=== PATIENT | female | born 1990 | race Caucasian/White ===

== ENCOUNTER 2017-04-18 20:23 | Emergency (ER) | payer MEDICAID ==
[2017-04-18] MEDS ORDERED: KETOROLAC TROMETHAMINE 60 MG/2 ML SDV IM ONE (20:59)
--- NOTE | 2017-04-18 21:00 | ER Document Report ---
ED Oral Problem - General Chief Complaint: Toothache Stated Complaint: TOOTHACHE Time Seen by Provider: 04/18/17 20:48 Mode of Arrival: Ambulatory Information source: Patient TRAVEL OUTSIDE OF THE [place] IN LAST 30 DAYS: No - HPI Patient complains to provider of: Toothache Onset: Gradual Quality of pain: Achy Severity: Moderate Pain Level: 3 Context: Fractured tooth Associated symptoms: None Worsened by: Cold Relieved by: Nothing Similar symptoms previously: Yes Recently seen / treated by doctor/dentist: No Notes: Patient is a 27-year-old female presenting to the emergency room complaining of dental pain that has been going on for "a while", however worsening over the past few days, she has an appointment with a dentist on Thursday but stated the pain became unbearable today, it is worsened by cold air or fluids, she has been taking Motrin 800 mg at home which provides her with moderate intermittent relief, she denies any fevers, no recent injury although reports a fracture to the tooth that has been there for several months, no drainage, no foul taste in her mouth - Related Data Allergies/Adverse Reactions: iodine [Iodine] Allergy (Severe, Verified 04/18/17 20:35) Anaphylaxis Shellfish * [Shellfish] Allergy (Severe, Verified 04/18/17 20:35) Anaphylaxis Past Medical History - General Information source: Patient - Social History Smoking Status: Current Every Day Smoker Family History: Reviewed & Not Pertinent Renal/ Medical History: Denies: Hx Peritoneal Dialysis Past Surgical History: Reports: Hx Dilation and Curettage, Hx Gynecologic Surgery - D&C - Immunizations Immunizations up to date: Yes Hx Diphtheria, Pertussis, Tetanus Vaccination: Yes Review of Systems - Review of Systems Constitutional: No symptoms reported EENT: See HPI Cardiovascular: No symptoms reported Respiratory: No symptoms reported Gastrointestinal: No symptoms reported Genitourinary: No symptoms reported Female Genitourinary: No symptoms reported Musculoskeletal: No symptoms reported Skin: No symptoms reported Hematologic/Lymphatic: No symptoms reported Neurological/Psychological: No symptoms reported -: Yes All other systems reviewed and negative Physical Exam - Notes Notes: - General General appearance: Appears well, Alert In distress: None - HEENT Head: Normocephalic, Atraumatic Eyes: Normal Conjunctiva: Normal Extraocular movements intact: Yes Eyelashes: Normal Pupils: PERRL - Respiratory Respiratory status: No respiratory distress - Cardiovascular Rhythm: Regular - Abdominal Inspection: Normal - Back Back: Normal - Extremities General upper extremity: Normal inspection General lower extremity: Normal inspection - Neurological Neuro grossly intact: Yes Orientation: AAOx4 [place] Coma Scale Eye Opening: Spontaneous [place] Coma Scale Verbal: Oriented [place] Coma Scale Motor: Obeys Commands [place] Coma Scale Total: 15 - Psychological Associated symptoms: Normal affect, Normal mood - Skin Skin Temperature: Warm Skin Moisture: Dry Skin Color: Normal - HEENT Teeth diagram: 1 - Dental carry Course - Re-evaluation Re-evalutation: 04/18/17 21:25 Patient with toothache to tooth #13, no signs of active infection, she is currently on Suboxone and agrees that she should not receive any narcotic pain medication at this time, she has a dentist appointment on Thursday of this coming week, she was advised to keep that appointment, provided with a Toradol injection in the emergency room as well as a prescription for 600 mg Motrin to take 3 times a day, advised to follow-up with the dentist as scheduled or return if any additional concerns, patient acknowledges understanding and agreement with this plan Discharge - Discharge Clinical Impression: Toothache Condition: Stable Disposition: HOME, SELF-CARE Instructions: Toothache ([facility]) Additional Instructions: Follow up with your primary care provider and a dentist in one to 2 days. Return to the emergency room immediately if symptoms worsen or any additional concerns. Prescriptions: Ibuprofen [Motrin 600 Mg Tablet] 600 mg PO TID #30 tablet
[2017-04-18 21:47] VITALS: BP 135/75
== END 2017-04-18 21:31 | disposition home or self-care (01) ==
LOC: ER 20:23
DX: K08.89 Other specified disorders of teeth and supporting structures (principal); F17.200 Nicotine dependence, unspecified, uncomplicated
CPT/HCPCS: 99283; 96372; J1885

== ENCOUNTER 2018-02-17 22:58 | Outpatient (CLI) | payer MEDICAID ==
[2018-02-17 23:56] LABS: APPEARANCE,URINE CLEAR; BILIRUBIN,URINE NEGATIVE (NEGATIVE); COLOR,URINE YELLOW; GLUCOSE, URINE NEGATIVE (NEGATIVE); KETONES,URINE NEGATIVE (NEGATIVE); LEUKOCYTE ESTERASE,URINE NEGATIVE (NEGATIVE); NITRITE,URINE NEGATIVE (NEGATIVE); PROTEIN,URINE NEGATIVE (NEGATIVE); URINE SPECIFIC GRAVITY 1.019
[2018-02-18 00:13] LABS: URINE AMPHETAMINES SCREEN NEGATIVE; URINE BARBITURATES SCREEN NEGATIVE; URINE BENZODIAZEPINES SCREEN NEGATIVE; URINE COCAINE SCREEN NEGATIVE; URINE MARIJUANA (THC) SCREEN NEGATIVE; URINE METHADONE SCREEN NEGATIVE; URINE PHENCYCLIDINE SCREEN NEGATIVE
[2018-02-18 00:21] LABS: ABSOLUTE EOSINOPHILS # (AUTO) 0.3 10^3/uL (0.0-0.6); ABSOLUTE LYMPHOCYTES (AUTO) 2.6 10^3/uL (0.5-4.7); ABSOLUTE MONOCYTES (AUTO) 1.2 10^3/uL (0.1-1.4); ABSOLUTE NEUT (AUTO) 10.3 10^3/uL (1.7-8.2); BASOPHILS % (AUTO) 0.3 % (0-2); EOSINOPHILS % (AUTO) 1.7 % (0-6); HEMATOCRIT 30.2 % (36.0-47.0); HEMOGLOBIN 10.5 g/dL (12.0-15.5); LYMPHOCYTES % (AUTO) 18.4 % (13-45); MEAN CORPUSCULAR HEMOGLOBIN 30.4 pg (27.0-33.4); MEAN CORPUSCULAR HGB CONC 34.9 g/dL (32.0-36.0); MEAN CORPUSCULAR VOLUME 87 fl (80-97); MONOCYTES % (AUTO) 8.5 % (3-13); PLATELET COUNT 244 10^3/uL (150-450); RED BLOOD COUNT 3.47 10^6/uL (3.72-5.28); RED CELL DISTRIBUTION WIDTH 13.3 % (11.5-14.0); SEGMENTED NEUTROPHILS % (AUTO) 71.1 % (42-78); TOTAL CELLS COUNTED % (AUTO) 100 %; WHITE BLOOD COUNT 14.4 10^3/uL (4.0-10.5)
--- NOTE | 2018-02-18 01:59 | RADIOLOGY REPORT (SQ) ---
EXAM DESCRIPTION: US LIMITED CLINICAL HISTORY: 28 years Female, placenta location Comparison: None. TECHNIQUE/LIMITATION: Targeted OB sonogram for requested parameters only. FINDINGS: Twin A Cardiac activity: 150-bpm. Twin B Cardiac activity: 143-bpm. Placenta, twin A: Anterior. No evidence of abruption. Placenta, twin B: Anterior. No evidence of abruption. Presentation twin A: Vertex presentation twin B: Vertex IMPRESSION: Targeted OB sonogram for requested parameters
== END 2018-02-18 02:07 | disposition home or self-care (01) ==
LOC: LC 22:58
PROVIDERS: ATTEND Obstetrics & Gynecology
DX: O99.89 Other specified diseases and conditions complicating pregnancy, childbirth and the puerperium (principal); R10.9 Unspecified abdominal pain
CPT/HCPCS: 36415; 76815; 80307; 81001; 85025

== ENCOUNTER 2018-04-21 16:59 | Inpatient (IN) | payer MEDICAID ==
[~2018-04-21 16:59] MED LIST: DEXAMETHASONE SOD PHOSPHATE INJ 4 MG/1 ML VIAL ONE; KETOROLAC TROMETHAMINE 60 MG/2 ML SDV ONE; METOCLOPRAMIDE HCL INJ/PF 10 MG/2 ML SDV ONE; ONDANSETRON HCL INJ/PF 4 MG/2 ML SDV ONE; PHENYLEPHRINE HCL INJ/PF 10 MG/1 ML SDV ONE
[2018-04-21 17:43] LABS: AMNISURE (ROM) NEGATIVE (NEGATIVE)
[2018-04-21 17:47] LABS: APPEARANCE,URINE CLEAR; BILIRUBIN,URINE NEGATIVE (NEGATIVE); COLOR,URINE STRAW; GLUCOSE, URINE NEGATIVE (NEGATIVE); KETONES,URINE NEGATIVE (NEGATIVE); LEUKOCYTE ESTERASE,URINE SMALL (NEGATIVE); NITRITE,URINE NEGATIVE (NEGATIVE); PROTEIN,URINE NEGATIVE (NEGATIVE); URINE SPECIFIC GRAVITY 1.002; UROBILINOGEN,URINE NEGATIVE mg/dL (<2.0)
[2018-04-21 18:13] LABS: URINE AMPHETAMINES SCREEN NEGATIVE; URINE BARBITURATES SCREEN NEGATIVE; URINE BENZODIAZEPINES SCREEN NEGATIVE; URINE COCAINE SCREEN NEGATIVE; URINE MARIJUANA (THC) SCREEN NEGATIVE; URINE METHADONE SCREEN NEGATIVE; URINE PHENCYCLIDINE SCREEN NEGATIVE
[2018-04-21 18:33] LABS: T.VAGINALIS (WET MOUNT) NO TRICHOMONAS SEEN; WBCS (WET MOUNT) RARE WBCS SEEN; YEAST (WET MOUNT) NO YEAST SEEN
[2018-04-21 19:25] LABS: ABSOLUTE BASOPHILS # (AUTO) 0.1 10^3/uL (0.0-0.2); ABSOLUTE EOSINOPHILS # (AUTO) 0.1 10^3/uL (0.0-0.6); ABSOLUTE LYMPHOCYTES (AUTO) 1.9 10^3/uL (0.5-4.7); ABSOLUTE MONOCYTES (AUTO) 0.6 10^3/uL (0.1-1.4); ABSOLUTE NEUT (AUTO) 7.4 10^3/uL (1.7-8.2); EOSINOPHILS % (AUTO) 0.7 % (0-6); HEMATOCRIT 37.2 % (36.0-47.0); HEMOGLOBIN 12.4 g/dL (12.0-15.5); LYMPHOCYTES % (AUTO) 18.5 % (13-45); MEAN CORPUSCULAR HEMOGLOBIN 28.3 pg (27.0-33.4); MEAN CORPUSCULAR HGB CONC 33.2 g/dL (32.0-36.0); MEAN CORPUSCULAR VOLUME 85 fl (80-97); MONOCYTES % (AUTO) 6.4 % (3-13); PLATELET COUNT 191 10^3/uL (150-450); RED BLOOD COUNT 4.37 10^6/uL (3.72-5.28); RED CELL DISTRIBUTION WIDTH 15.9 % (11.5-14.0); SEGMENTED NEUTROPHILS % (AUTO) 73.4 % (42-78); TOTAL CELLS COUNTED % (AUTO) 100 %; WHITE BLOOD COUNT 10.1 10^3/uL (4.0-10.5)
[2018-04-21] MEDS ORDERED: PENICILLIN G-K 5 MILLION UNIT VIAL ONE (20:04)
--- NOTE | 2018-04-21 20:09 | Admission Physical ---
Datetime Report Generated by CPN: 04/21/2018 20:09 CURRENT ADMISSION Chief Complaint: Suspected Ruptured Membranes Indication for Induction- Other: Srom Admit Impression : , Intrauterine Admit Impression- Other: Twins Admit Plan: Admit to Unit; Initiate Labor Protocol ALLERGIES Medication Allergies: Yes Medication Allergies: Shellfish */SV/Anaphylaxis (04/21/2018); iodine/SV/Anaphylaxis (04/21/2018) Latex: No Latex Allergies Food Allergies: N/A Environmental Allergies: N/A OBSTETRICAL HISTORY EDC: 05/25/2018 00:00 : 4 Para: 2 Term: 2 : 0 SAB: 1 IAB: 0 Ectopic: 0 Livin Cesareans: 0 VBACs: 0 Multiple Births: 0 Gestational Diabetes: No Rh Sensitization: No Incompetent Cervix: No REGINO: No Infertility: No ART Treatment: No Uterine Anomaly: No IUGR: No Hx Previous C/S: No Macrosomia: No Hx Loss/Stillborn: No PIH: No Hx : No Placenta Previa/Abruption: No Depression/PP Depression: No PTL/PROM: No Post Hemorrhage: No Obstetrical History Comments: G1- SAB with D_C G2- 2011, 40 weeks, 6lbs 9oz, female, , epidural G3- 2013, 38 weeks, 6lbs 9oz, female, , epidural, IOL SGA G4-mono-di twins SEE RECORDS Alcohol: No Marijuana : No Cocaine: No Other Illicit Drugs: No Cigarettes: Smoker, Current Status Unknown. [id number] MEDICAL HISTORY Diabetes: No Blood Transfusion: No Pulmonary Disease (Asthma, TB): No Breast Disease: No Hypertension: No Classified Ad Taker Surgery: Yes Heart Disease: No Hosp/Surgery: No Autoimmune Disorder: No Anesthetic Complications: No Kidney Disease: No Abnormal Pap Smear: Yes Neuro/Epilepsy: No Psychiatric Disorders: No Other Medical Diseases: No Hepatitis/Liver Disease: Yes Significant Family History: No Varicosities/Phlebitis: No Trauma/Violence : No Thyroid Dysfunction: No Medical History Comments: Hep C, D_C 2009, HPV, chronic drug abuse INFECTIOUS HISTORY Gonorrhea: No Genital Herpes: No Chlamydia: Yes Tuberculosis: No Syphilis: No Hepatitis: Yes HIV/AIDS Exposure: No Rash or Viral Illness: No HPV: No Infectious History Comments: Hep C PHYSICAL EXAM General: Normal HEENT: Normal Neurologic: Normal Thyroid: Normal Heart: Normal Lungs: Normal Breast: Deferred Back: Normal Abdomen: Normal Genitourinary Exam: Normal Extremities: Normal DTRs: Normal Pelvic Type: Adequate Vital Signs: Reviewed VAGINAL EXAM Dilatation: 1 Effacement: 0 Station: 0 MEMBRANES Membranes: Ruptured FETUS A EGA: 35.1 Monitoring: External US FHR- Baseline: 140 Variability: Moderate 6-25bpm Decelerations: None FHR Category: Category I Presentation: Vertex Presentation- Other: breech Admit Comment: Will admit. She will likely need pitocin. Will begin GBS prophylaxis. FETUS B Monitoring: External US PLANS FOR LABOR AND DELIVERY Benefit of Breast Feed Discussed: Yes Circumcision: N/A INFORMED CONSENT Signature: with User ID: [email or web address]
[2018-04-21] MEDS ORDERED: PENICILLIN G POTASSIUM 5,000,000 UNIT in DEXTROSE 5%-WATER 100 ML IV ONE (20:12)
[2018-04-21] MEDS ORDERED: OXYTOCIN/NORMAL SALINE 20 UNIT/1,000 ML RTUINJ IV PRN ×2 (20:14→21:36)
[2018-04-21] MEDS ORDERED: OXYTOCIN/NORMAL SALINE 20 UNIT/1,000 ML RTUINJ ONE (21:07)
[2018-04-21] MEDS ORDERED: HYDROMORPHONE HCL INJ/PF 2 MG/ML AMPULE IV PRN (21:36)
[2018-04-21] MEDS ORDERED: CITRIC ACID/SODIUM CITRATE ORAL SOLN 15 ML UDCUP ONE (21:36)
[2018-04-21] MEDS ORDERED: PROMETHAZINE HCL INJ 25 MG/1 ML VIAL IV PRN ×3 (21:36→22:42)
[2018-04-21] MEDS ORDERED: MEASLES,MUMPS&RUBELLA VACC/PF 0.5 ML VIAL SUBCUT PRN (21:36)
[2018-04-21] MEDS ORDERED: ACETAMINOPHEN 325 MG TABLET PO PRN (21:36)
[2018-04-21] MEDS ORDERED: DIPH/PERTUSS(ACELL)/TETANUS VAC/PF 0.5 ML SYR (>=10YO) IM PRN (21:36)
[2018-04-21] MEDS ORDERED: RINGERS SOLUTION,LACTATED 1,000 ML IV PRN (21:36)
[2018-04-21] MEDS ORDERED: SIMETHICONE 80 MG TAB.CHEW PO PRN (21:36)
[2018-04-21] MEDS ORDERED: OXYCODONE-ACETAMINOPHEN 5-325 MG TABLET PO PRN (21:36)
[2018-04-21] MEDS ORDERED: ACETAMINOPHEN 1,000 MG/100 ML RTUPB IV PRN (21:36)
[2018-04-21] MEDS ORDERED: CEFAZOLIN 2 GM/D5W RTU 2 GM/50 ML RTUPB IV ONE (21:43)
[2018-04-21] MEDS ORDERED: EPHEDRINE SULFATE INJ 50 MG/1 ML AMPULE ONE (21:58)
[2018-04-21] MEDS ORDERED: FENTANYL CITRATE INJ/PF 100 MCG/2 ML AMPUL ONE (21:58)
[2018-04-21] MEDS ORDERED: OXYTOCIN 10 UNIT/ML VIAL ONE (21:58)
[2018-04-21] MEDS ORDERED: MIDAZOLAM 2 MG/2 ML INJ ONE (21:59)
[2018-04-21] MEDS ORDERED: BUPIVACAINE HCL/DEX-WATER/PF 15 MG/2 ML AMPULE ONE (22:04)
[2018-04-21] MEDS ORDERED: DIPHENHYDRAMINE HCL 50 MG/ML VIAL IV PRN (22:42)
[2018-04-21] MEDS ORDERED: ONDANSETRON HCL INJ/PF 4 MG/2 ML SDV IV PRN (22:42)
[2018-04-21] MEDS ORDERED: MORPHINE SULFATE 10 MG/ML INJ IV PRN (22:42)
[2018-04-21] MEDS ORDERED: FENTANYL CITRATE INJ/PF 100 MCG/2 ML AMPUL IV PRN ×3 (22:42)
[2018-04-21] MEDS ORDERED: MEPERIDINE HCL/PF INJ 25 MG/1 ML DISP.SYRIN IV PRN (22:42)
[2018-04-21] MEDS ORDERED: ACETAMINOPHEN 1,000 MG/100 ML RTUPB IV ONE (23:14)
--- NOTE | 2018-04-21 23:19 | Operative Report ---
Operative Report DATE OF SURGERY: 04/21/18 PREOPERATIVE DIAGNOSIS: Twins baby A vertex with 8 minute deceleration and now tachycardia, baby B transverse POSTOPERATIVE DIAGNOSIS: Same with the addition of a baby B being transverse with backdown lie OPERATION: Primary via T incision of the uterus. SURGEON: RADHA OCAMPO ANESTHESIA: Spinal TISSUE REMOVED OR ALTERED: Placenta COMPLICATIONS: T-shaped incision on the uterus to deliver the twin B baby with back down transverse lie ESTIMATED BLOOD LOSS: 500 cc INTRAOPERATIVE FINDINGS: Baby A was vertex anterior placenta baby B is transverse back down lie normal tubes and ovaries PROCEDURE: Patient was taken to the OR and placed in supine position after her spinal anesthesia. She is prepared and draped in sterile fashion. Harrison was placed for drainage of the bladder. Low transverse incision was made and carried down the level of the fascia. The fascial incision was made with knife and extended bilaterally with curved Hunter scissors. The fascia was off the rectus muscles using sharp and blunt dissection. The rectus muscles are in the midline. The peritoneum was entered without incident. Bladder blade was placed in uterine segment was identified. A low transverse incision was made creating a bladder flap. Bladder blade was placed low transverse uterine incision was made with the c safe knife and extended with fingertips. Baby A was delivered with some fundal pressure. Mouth and nose were suctioned free. The cord is doubly clamped and cut. Baby A is passed off to the clinical informatics director in attendance. Next I attempted to deliver baby B however the only accessible appendage was a foot. I was unable to pull the baby down to the incision and I was unable to find the other foot. Palpation the upper abdomen revealed a backdown transverse lie with the head in the left upper corner of the uterus. I attempted to rotate the baby vertex and could not. I was unable to pull the feet down to the uterus as well. For this reason I made a T-shaped to the incision in the midline of the uterus and delivered the baby. The placenta was manually extracted with trailing membranes. The uterus was externalized wrapped in a moist lap sponge. Uterine contents wiped free. Uterus was closed with a running locking layer of 0 chromic suture using the second layer to imbricate the first completing a double layer closure of the uterus. This completed the vertical portion of the incision. The transverse portion was also closed with a running locking layer of 0 chromic and then imbricated with a second layer of 0 chromic. The serosa was closed with a running 2-0 chromic stitch. The pelvis was irrigated and suctioned free of fluid the uterus was replaced in the abdomen. Interceed was placed over the vertical portion of the incision. The abdominal wall peritoneum was closed with running 2-0 chromic stitch. Fascia was closed with a running 0 Vicryl in 2 segments. Nisha's layer was brought together with 0 plain gut stitch and the skin was closed with running subcuticular 4-0 undyed Vicryl stitch. The wound was dressed mother and babies did well.
[2018-04-22] MEDS: OXYCODONE-ACETAMINOPHEN 5-325 MG TABLET PO PRN ×4 (02:07→21:44)
[2018-04-22] MEDS: PENICILLIN G POTASSIUM 2,500,000 UNIT in DEXTROSE 5%-WATER 50 ML IV SCH ×2 (02:15→06:11)
[2018-04-22] MEDS: KETOROLAC TROMETHAMINE INJ/PF 30 MG/1 ML SDV IV SCH ×3 (02:40→16:11)
[2018-04-22] MEDS: IBUPROFEN 800 MG TABLET PO SCH ×2 (02:40→06:11)
[2018-04-22 07:05] LABS: HEMOGLOBIN 11.5 g/dL (12.0-15.5); MEAN CORPUSCULAR HEMOGLOBIN 28.4 pg (27.0-33.4); MEAN CORPUSCULAR HGB CONC 33.7 g/dL (32.0-36.0); MEAN CORPUSCULAR VOLUME 84 fl (80-97); PLATELET COUNT 194 10^3/uL (150-450); RED BLOOD COUNT 4.04 10^6/uL (3.72-5.28); RED CELL DISTRIBUTION WIDTH 15.6 % (11.5-14.0); WHITE BLOOD COUNT 15.9 10^3/uL (4.0-10.5)
[2018-04-22] MEDS: PRENATAL VITAMIN W DHA CAPSULE PO SCH (09:24)
[2018-04-22] MEDS: DOCUSATE SODIUM 100 MG CAPSULE PO SCH ×2 (09:24→18:48)
--- NOTE | 2018-04-22 11:27 | PDOC PROGRESS REPORT ---
Subjective-OB Progress Note for:: 04/22/18 Subjective: Holding baby, FOB at BS, minimal pain, breast feeding, eating and drinking well , scant bleeding Physical Exam (OB) Vital Signs: Temp Pulse Resp BP Pulse Ox 98.0 F 65 15 135/74 H 98 04/22/18 07:52 04/22/18 07:52 04/22/18 07:52 04/22/18 07:52 04/22/18 07:52 Intake & Output 04/21/18 04/22/18 04/23/18 06:59 06:59 06:59 Intake Total 240 350 Output Total 800 Balance -560 350 Weight 95.3 kg - PIH/Pre-Eclampsia Clonus: Negative Headache: Absent Epigastric Pain: No Visual Changes: No - Dressing Removed: No - opsite dressing D&I, no swelling, redness or drainage noted Incision: Well Approximated Closure Type: Surgical Glue - Lochia Lochia Amount: Small 10-25 ml Lochia Color: Rubra/Red - Abdomen Description: Tender, Soft Hernia Present: No Fundal Description: Firm, Midline Fundal Height: u/u - u/2 Objective-Diagnostic Laboratory: 04/22/18 06:25 04/21/18 04/21/18 04/21/18 17:13 19:09 19:09 WBC 10.1 RBC 4.37 Hgb 12.4 Hct 37.2 MCV 85 MCH 28.3 MCHC 33.2 RDW 15.9 H Plt Count 191 Seg Neutrophils % 73.4 Lymphocytes % 18.5 Monocytes % 6.4 Eosinophils % 0.7 Basophils % 1.0 Absolute Neutrophils 7.4 Absolute Lymphocytes 1.9 Absolute Monocytes 0.6 Absolute Eosinophils 0.1 Absolute Basophils 0.1 Urine Color STRAW Urine Appearance CLEAR Urine pH 7.0 Ur Specific [place] 1.002 Urine Protein NEGATIVE Urine Glucose (UA) NEGATIVE Urine Ketones NEGATIVE Urine Blood NEGATIVE Urine Nitrite NEGATIVE Ur Leukocyte Esterase SMALL H Urine WBC (Auto) 5 Urine RBC (Auto) 1 Blood Type A POSITIVE Antibody Screen NEGATIVE 04/22/18 06:25 WBC 15.9 H RBC 4.04 Hgb 11.5 L Hct 34.0 L MCV 84 MCH 28.4 MCHC 33.7 RDW 15.6 H Plt Count 194 Seg Neutrophils % Lymphocytes % Monocytes % Eosinophils % Basophils % Absolute Neutrophils Absolute Lymphocytes Absolute Monocytes Absolute Eosinophils Absolute Basophils Urine Color Urine Appearance Urine pH Ur Specific [place] Urine Protein Urine Glucose (UA) Urine Ketones Urine Blood Urine Nitrite Ur Leukocyte Esterase Urine WBC (Auto) Urine RBC (Auto) Blood Type Antibody Screen Assessment and Plan(PN) - Assessment and Plan (1) complicated by subutex maintenance, antepartum Is this a current diagnosis for this admission?: Yes (2) Hepatitis C Qualifiers: Viral hepatitis chronicity: unspecified Is this a current diagnosis for this admission?: Yes (3) Twin , delivered by section, current hospitalization Is this a current diagnosis for this admission?: Yes - Time Spent with Patient Time with patient: Less than 15 minutes Medications reviewed and adjusted accordingly: Yes - Disposition Anticipated Discharge: Home Within: within 48 hours
[2018-04-23] MEDS: IBUPROFEN 800 MG TABLET PO SCH ×6 (00:27→23:51)
[2018-04-23] MEDS: OXYCODONE-ACETAMINOPHEN 5-325 MG TABLET PO PRN ×3 (05:36→19:42)
[2018-04-23] MEDS: DOCUSATE SODIUM 100 MG CAPSULE PO SCH ×2 (09:33→18:49)
[2018-04-23] MEDS: PRENATAL VITAMIN W DHA CAPSULE PO SCH (09:33)
--- NOTE | 2018-04-23 10:43 | PDOC PROGRESS REPORT ---
Subjective-OB Progress Note for:: 04/23/18 Subjective: pt doing well pos BM some difficulty with breast feeding and increased soreness Physical Exam (OB) Vital Signs: Temp Pulse Resp BP Pulse Ox 98.1 F 73 16 141/82 H 97 04/23/18 08:03 04/23/18 08:03 04/23/18 08:03 04/23/18 08:03 04/23/18 08:03 Intake & Output 04/22/18 04/23/18 04/24/18 06:59 06:59 06:59 Intake Total 240 2815 Output Total 800 2200 Balance -560 615 Weight 95.3 kg 95.2 kg - PIH/Pre-Eclampsia Clonus: Negative Headache: Absent Epigastric Pain: Yes Visual Changes: No - Dressing Removed: No Incision: Dressing, Well Approximated Closure Type: Sutures - Lochia Lochia Amount: Moderate 25-50 ml Lochia Color: Rubra/Red - Abdomen Description: Tender, Soft, Flat Hernia Present: No Bowel Sounds: Normoactive Flatus Presence: Present Stool: Yes Fundal Description: Firm, Midline Fundal Height: u/u - u/2 - Respiratory Breath sounds: Clear - Abdominal Tenderness: Tender - Extremities Calf: Nontender Objective-Diagnostic Laboratory: 04/22/18 06:25 Assessment and Plan(PN) - Assessment and Plan (1) Hepatitis C Qualifiers: Viral hepatitis chronicity: unspecified Is this a current diagnosis for this admission?: Yes (2) complicated by subutex maintenance, antepartum Is this a current diagnosis for this admission?: Yes (3) Twin , delivered by section, current hospitalization Is this a current diagnosis for this admission?: Yes - Time Spent with Patient Time with patient: Less than 15 minutes Medications reviewed and adjusted accordingly: Yes - Disposition Anticipated Discharge: Home Within: within 24 hours
[2018-04-24] MEDS: OXYCODONE-ACETAMINOPHEN 5-325 MG TABLET PO PRN ×3 (01:24→16:23)
[2018-04-24] MEDS: IBUPROFEN 800 MG TABLET PO SCH ×4 (06:36→23:43)
[2018-04-24] MEDS: DOCUSATE SODIUM 100 MG CAPSULE PO SCH ×2 (10:33→18:30)
[2018-04-24] MEDS: PRENATAL VITAMIN W DHA CAPSULE PO SCH (10:33)
--- NOTE | 2018-04-24 11:02 | PDOC DISCHARGE SUMMARY ---
Final Diagnosis Discharge Date: 04/24/18 - Final Diagnosis (1) SROM (spontaneous rupture of membranes) Is this a current diagnosis for this admission?: Yes (2) Non-reassuring heart rate, delivered, current hospitalization Is this a current diagnosis for this admission?: Yes (3) Hepatitis C Is this a current diagnosis for this admission?: Yes (4) complicated by subutex maintenance, antepartum Is this a current diagnosis for this admission?: Yes (5) Twin , delivered by section, current hospitalization Is this a current diagnosis for this admission?: Yes Discharge Data - Discharge Medication Home Medications: Buprenorphine HCl [Subutex 8 mg Sublingual Tablet] 1 tab PO BID 02/18/18 Vit Calc,Iron,Folic [ Vitamins] 1 tab PO DAILY 04/21/18 Reason(s) for Admission: Ceasarean Section-Primary, PROM, Obstetric Complications, Twins, Other Procedures: NST, Management of Obstetric Complications Intrapartum Procedure(s): : Low Cervical, Transverse, : Low Cervical, Vertical Intrapartum Procedure Note: T incision - Diagnosis Test Laboratory: Temp Pulse Resp BP Pulse Ox 98.4 F 77 18 139/74 H 97 04/24/18 09:03 04/24/18 09:03 04/24/18 09:03 04/24/18 09:03 04/24/18 09:03 04/21/18 04/21/18 04/22/18 17:13 19:09 06:25 RBC 4.37 4.04 Hgb 12.4 11.5 L Hct 37.2 34.0 L Urine Opiates Screen NEGATIVE - Discharge information/Instructions Discharge Activity: No Driving, No Lifting Over 10 Pounds, No Lifting/Push/ Pulling, Pelvic Rest, No tub bath Discharge Diet: Regular Disposition: HOME, SELF-CARE Follow up with: [facility] in: 4, Days
[2018-04-24] MEDS ORDERED: DICLOXACILLIN SODIUM 250 MG CAPSULE ONE (17:44)
[2018-04-24] MEDS: DICLOXACILLIN SODIUM 250 MG CAPSULE PO SCH ×2 (18:30→23:42)
[2018-04-25] MEDS: DICLOXACILLIN SODIUM 250 MG CAPSULE PO SCH ×2 (05:30→11:58)
[2018-04-25] MEDS: IBUPROFEN 800 MG TABLET PO SCH ×2 (05:30→11:58)
[2018-04-25] MEDS: OXYCODONE-ACETAMINOPHEN 5-325 MG TABLET PO PRN ×2 (05:33→09:44)
[2018-04-25 08:45] VITALS: BP 140/94
--- NOTE | 2018-04-25 09:37 | PDOC PROGRESS REPORT ---
Subjective-OB Progress Note for:: 04/25/18 Subjective: Discharge was cancelled yesterday d/t s s/x of mastitis on Lt breast, abx started last night. She is afebrile, pumping and using massage and warm compresses. 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, will continue abx - PIH/Pre-Eclampsia Clonus: Negative Headache: Absent Epigastric Pain: Yes Visual Changes: No - Dressing Removed: No Incision: Dressing, Well Approximated Closure Type: Sutures - Lochia Lochia Amount: Scant < 10 ml Lochia Color: Rubra/Red - Abdomen Description: Soft, Round Hernia Present: No Fundal Description: Firm, Midline Fundal Height: u/u - u/2 Objective-Diagnostic Laboratory: 04/22/18 06:25 Assessment and Plan(PN) - Assessment and Plan (1) SROM (spontaneous rupture of membranes) Is this a current diagnosis for this admission?: Yes (2) Non-reassuring heart rate, delivered, current hospitalization Is this a current diagnosis for this admission?: Yes (3) Hepatitis C Qualifiers: Viral hepatitis chronicity: unspecified Is this a current diagnosis for this admission?: Yes (4) complicated by subutex maintenance, antepartum Is this a current diagnosis for this admission?: Yes (5) Delivery by section using T-shaped incision Is this a current diagnosis for this admission?: Yes - Time Spent with Patient Time with patient: Less than 15 minutes Medications reviewed and adjusted accordingly: Yes - Disposition Anticipated Discharge: Home Within: within 24 hours
[2018-04-25] MEDS: DOCUSATE SODIUM 100 MG CAPSULE PO SCH (09:44)
[2018-04-25] MEDS: PRENATAL VITAMIN W DHA CAPSULE PO SCH (09:44)
== END 2018-04-25 12:30 | disposition home or self-care (01) | DRG 765 ==
LOC: LC 16:59 → LR 19:08 → 2S 04-22 01:17
PROVIDERS: ADMIT Obstetrics & Gynecology; ATTEND Obstetrics & Gynecology
PROC: 10D00Z1 Extraction of Products of Conception, Low, Open Approach (ICD-10-PCS; principal; 2018-04-21)
PROC: 4A1HXCZ Monitoring of Products of Conception, Cardiac Rate, External Approach (ICD-10-PCS; 2018-04-21)
DX: O64.1XX2 Obstructed labor due to breech presentation, fetus 2 (principal); O98.42 Viral hepatitis complicating childbirth; F11.20 Opioid dependence, uncomplicated; O99.324 Drug use complicating childbirth; O30.033 Twin pregnancy, monochorionic/diamniotic, third trimester; O99.334 Smoking (tobacco) complicating childbirth; F17.210 Nicotine dependence, cigarettes, uncomplicated; B18.2 Chronic viral hepatitis C; O76 Abnormality in fetal heart rate and rhythm complicating labor and delivery; Z37.0 Single live birth; Z3A.35 35 weeks gestation of pregnancy; Z37.2 Twins, both liveborn; Z91.013 Allergy to seafood
CPT/HCPCS: 1961; 36415; 59025; 80307; 81001; 84112; 85025; 85027; 86592; 86850; 86900; 86901; 87210; 88307; 94760; 94799; C1765; J0131; J0690; J1100; J1885; J2250; J2370; J2405; J2540; J2590; J2765; J3010; J3490; J7120; Q0114

== ENCOUNTER 2019-09-21 11:16 | Outpatient (CLI) | payer MEDICAID ==
--- NOTE | 2019-09-21 14:30 | Non Stress Test Report ---
Non Stress Test Datetime Report Generated by CPN: 09/21/2019 14:30 DEMOGRAPHIC EGA NST: 36.0 INDICATION Indication for Study (NST) Other: Repeat NST from [facility] VITAL SIGNS Temperature - NST: 98.1 Pulse - NST: 93 RESP - NST: 16 NBPSYS NST: 134 NBPDIA NST: 62 MONITORING Monitor Explained: Monitor Explained; Test Explained; Patient Verbalized Understanding Time on Monitor: 09/21/2019 11:33 Time off Monitor: 09/21/2019 12:52 NST Duration: 79 NST INTERVENTIONS NST Interventions: PO Hydration; Reposition Patient Physician Notified NST: J. Soto, CNM BABY A: [id number] BABY A Movement : Present Contraction Frequency : none FHR Baseline : 130 Accelerations : 15X15 Decelerations : None Variability : Moderate 6-25bpm NST Review: Meets Criteria for Reactive NST NST Review and Verified By : Gertrudis MendezAshland, RN NST Results: Reactive NST COMMENTS NST Comments: provider present on unit reviewing strip NST REPORT Report Trigger: Send Report
== END 2019-09-21 13:01 | disposition home or self-care (01) ==
LOC: LC 11:16
PROVIDERS: ATTEND Obstetrics & Gynecology
PROC: 4A1HXCZ Monitoring of Products of Conception, Cardiac Rate, External Approach (ICD-10-PCS; principal; 2019-09-21)
DX: Z34.83 Encounter for supervision of other normal pregnancy, third trimester (principal); Z3A.36 36 weeks gestation of pregnancy
CPT/HCPCS: 59025

== ENCOUNTER 2019-09-27 11:46 | Outpatient (CLI) | payer MEDICAID ==
--- NOTE | 2019-09-27 12:29 | Non Stress Test Report ---
Non Stress Test Datetime Report Generated by CPN: 09/27/2019 12:28 DEMOGRAPHIC EGA NST: 36.6 INDICATION Indication for Study (NST) Other: SUBUTEX USE VITAL SIGNS Temperature - NST: 98.1 Pulse - NST: 88 RESP - NST: 16 NBPSYS NST: 123 NBPDIA NST: 60 MONITORING Monitor Explained: Monitor Explained; Test Explained; Patient Verbalized Understanding Time on Monitor: 09/27/2019 11:55 Time off Monitor: 09/27/2019 12:23 NST Duration: 28 NST INTERVENTIONS NST Interventions: PO Hydration; Reposition Patient Physician Notified NST: Dr Lilly BABY A: [id number] BABY A Movement : Present Contraction Frequency : irritability FHR Baseline : 120 Accelerations : 15X15 Decelerations : None Variability : Moderate 6-25bpm NST Review: Meets Criteria for Reactive NST NST Review and Verified By : C Swift RN NST Results: Reactive NST COMMENTS NST Comments: MD on unit reviewing FHT strip. NST REPORT Report Trigger: Send Report
== END 2019-09-27 12:26 | disposition home or self-care (01) ==
LOC: LC 11:46
PROVIDERS: ATTEND Obstetrics & Gynecology
PROC: 4A1HXCZ Monitoring of Products of Conception, Cardiac Rate, External Approach (ICD-10-PCS; principal; 2019-09-27)
DX: O99.333 Smoking (tobacco) complicating pregnancy, third trimester (principal); F17.210 Nicotine dependence, cigarettes, uncomplicated; Z3A.36 36 weeks gestation of pregnancy; Z79.891 Long term (current) use of opiate analgesic
CPT/HCPCS: 59025

== ENCOUNTER 2019-09-28 07:11 | Inpatient (IN) | payer MEDICAID ==
[2019-09-27 11:41] LABS: ABSOLUTE BASOPHILS # (AUTO) 0.1 10^3/uL (0.0-0.2); ABSOLUTE EOSINOPHILS # (AUTO) 0.2 10^3/uL (0.0-0.6); ABSOLUTE LYMPHOCYTES (AUTO) 2.5 10^3/uL (0.5-4.7); ABSOLUTE MONOCYTES (AUTO) 0.9 10^3/uL (0.1-1.4); ABSOLUTE NEUT (AUTO) 9.8 10^3/uL (1.7-8.2); BASOPHILS % (AUTO) 0.5 % (0-2); EOSINOPHILS % (AUTO) 1.2 % (0-6); HEMATOCRIT 33.8 % (36.0-47.0); HEMOGLOBIN 11.6 g/dL (12.0-15.5); LYMPHOCYTES % (AUTO) 18.4 % (13-45); MEAN CORPUSCULAR HEMOGLOBIN 28.3 pg (27.0-33.4); MEAN CORPUSCULAR HGB CONC 34.1 g/dL (32.0-36.0); MEAN CORPUSCULAR VOLUME 83 fl (80-97); MONOCYTES % (AUTO) 6.7 % (3-13); PLATELET COUNT 302 10^3/uL (150-450); RED BLOOD COUNT 4.09 10^6/uL (3.72-5.28); RED CELL DISTRIBUTION WIDTH 15.4 % (11.5-14.0); SEGMENTED NEUTROPHILS % (AUTO) 73.2 % (42-78); TOTAL CELLS COUNTED % (AUTO) 100 %; WHITE BLOOD COUNT 13.4 10^3/uL (4.0-10.5)
[2019-09-27 12:04] LABS: APPEARANCE,URINE CLEAR; BILIRUBIN,URINE NEGATIVE (NEGATIVE); COLOR,URINE YELLOW; GLUCOSE, URINE NEGATIVE (NEGATIVE); KETONES,URINE NEGATIVE (NEGATIVE); LEUKOCYTE ESTERASE,URINE NEGATIVE (NEGATIVE); NITRITE,URINE NEGATIVE (NEGATIVE); PROTEIN,URINE NEGATIVE (NEGATIVE); URINE SPECIFIC GRAVITY 1.005; UROBILINOGEN,URINE NEGATIVE mg/dL (<2.0)
[2019-09-27 12:27] LABS: URINE AMPHETAMINES SCREEN NEGATIVE; URINE BARBITURATES SCREEN NEGATIVE; URINE BENZODIAZEPINES SCREEN NEGATIVE; URINE COCAINE SCREEN NEGATIVE; URINE MARIJUANA (THC) SCREEN NEGATIVE; URINE METHADONE SCREEN NEGATIVE; URINE PHENCYCLIDINE SCREEN NEGATIVE
[2019-09-27 13:21] LABS: CHLAM PCR NOT DETECTED (NOT DETECT)
[~2019-09-28 07:11] MED LIST changes: +CEFAZOLIN SODIUM 2 GM in DEXTROSE 5%-WATER 100 ML IV PRN; -DEXAMETHASONE SOD PHOSPHATE INJ 4 MG/1 ML VIAL ONE; -KETOROLAC TROMETHAMINE 60 MG/2 ML SDV ONE; +LIDOCAINE 0.5% INJ-PF (5 MG/ML) 50 ML SDV SUBCUT PRN; -METOCLOPRAMIDE HCL INJ/PF 10 MG/2 ML SDV ONE; -ONDANSETRON HCL INJ/PF 4 MG/2 ML SDV ONE; -PHENYLEPHRINE HCL INJ/PF 10 MG/1 ML SDV ONE
[2019-09-28] MEDS ORDERED: KETAMINE HCL INJ 500 MG/10 ML VIAL ONE (08:02)
[2019-09-28] MEDS: LACTATED RINGERS 1000 ML IV PRN ×2 (08:43→21:33)
[2019-09-28] MEDS ORDERED: OXYTOCIN 10 UNIT/ML VIAL ONE (09:19)
[2019-09-28] MEDS ORDERED: ONDANSETRON HCL INJ/PF 4 MG/2 ML SDV ONE (09:20)
[2019-09-28] MEDS ORDERED: ACETAMINOPHEN 1,000 MG/100 ML RTUPB IV ONE (09:20)
[2019-09-28] MEDS ORDERED: FENTANYL CITRATE INJ/PF 100 MCG/2 ML AMPUL ONE (09:20)
[2019-09-28] MEDS ORDERED: OXYTOCIN/NORMAL SALINE 20 UNIT/1,000 ML RTUINJ ONE (09:20)
[2019-09-28] MEDS ORDERED: DIPHENHYDRAMINE HCL 50 MG/ML VIAL ONE (09:20)
[2019-09-28] MEDS ORDERED: MIDAZOLAM 2 MG/2 ML INJ ONE (09:20)
[2019-09-28] MEDS ORDERED: LIDOCAINE 2% INJ-PF (20 MG/ML) 10 ML AMPUL ONE (09:21)
[2019-09-28] MEDS ORDERED: PROMETHAZINE HCL INJ 25 MG/1 ML VIAL IV PRN ×2 (09:56→11:10)
[2019-09-28] MEDS ORDERED: FENTANYL CITRATE INJ/PF 100 MCG/2 ML AMPUL IV PRN ×3 (09:56)
[2019-09-28] MEDS ORDERED: MORPHINE SULFATE 10 MG/ML INJ IV PRN (09:56)
[2019-09-28] MEDS ORDERED: MEPERIDINE HCL/PF INJ 25 MG/1 ML DISP.SYRIN IV PRN (09:56)
[2019-09-28] MEDS ORDERED: ONDANSETRON HCL INJ/PF 4 MG/2 ML SDV IV PRN (09:56)
[2019-09-28] MEDS ORDERED: OXYCODONE-ACETAMINOPHEN 5-325 MG TABLET PO PRN ×3 (09:56→11:10)
[2019-09-28] MEDS ORDERED: DIPHENHYDRAMINE HCL 50 MG/ML VIAL IV PRN (09:56)
[2019-09-28] MEDS ORDERED: SIMETHICONE 80 MG TAB.CHEW PO PRN (11:10)
[2019-09-28] MEDS ORDERED: ACETAMINOPHEN 325 MG TABLET PO PRN (11:10)
[2019-09-28] MEDS ORDERED: MEASLES,MUMPS&RUBELLA VACC/PF 0.5 ML VIAL SUBCUT PRN (11:10)
[2019-09-28] MEDS ORDERED: OXYTOCIN/NORMAL SALINE 20 UNIT/1,000 ML RTUINJ IV PRN (11:10)
[2019-09-28] MEDS ORDERED: DIPH/PERTUSS(ACELL)/TETANUS VAC/PF 0.5 ML SYR (>=10YO) IM PRN (11:10)
[2019-09-28] MEDS ORDERED: ACETAMINOPHEN 1,000 MG/100 ML RTUPB IV PRN (11:10)
--- NOTE | 2019-09-28 11:10 | Brief Operative Note ---
BRIEF OPERATIVE REPORT DATE OF SURGERY: 09/28/19 TIME OF SURGERY: 10:00 PREOPERATIVE DIAGNOSIS: 37+0ega, Repeat section, Undesired fertility POSTOPERATIVE DIAGNOSIS: LUIS ARMANDO - delivered SURGEON: TRUDY JORDAN FINDINGS: Male , apgars and weight pending COMPLICATIONS: none ESTIMATED BLOOD LOSS: 600ml TISSUE REMOVED OR ALTERED: placenta and cord TECHNICAL PROCEDURE: Repeat section with scar revision, BTL with [facility]
[2019-09-28] MEDS: HYDROMORPHONE HCL INJ/PF 2 MG/ML AMPULE IV PRN ×3 (12:27→21:29)
[2019-09-28] MEDS ORDERED: HYDROMORPHONE HCL INJ/PF 2 MG/ML AMPULE ONE (12:27)
[2019-09-28] MEDS ORDERED: KETOROLAC TROMETHAMINE INJ/PF 30 MG/1 ML SDV IV SCH ×2 (14:00→22:00)
[2019-09-28] MEDS ORDERED: KETOROLAC TROMETHAMINE 60 MG/2 ML SDV ONE (14:15)
[2019-09-28] MEDS ORDERED: GLYCOPYRROLATE 1 MG/5 ML VIAL ONE (14:15)
[2019-09-28] MEDS ORDERED: PHENYLEPHRINE HCL INJ/PF 10 MG/1 ML SDV ONE (14:15)
[2019-09-28] MEDS: OXYCODONE-ACETAMINOPHEN 5-325 MG TABLET PO PRN (14:48)
[2019-09-28] MEDS: DOCUSATE SODIUM 100 MG CAPSULE PO SCH (17:10)
[2019-09-28] MEDS: KETOROLAC TROMETHAMINE INJ/PF 30 MG/1 ML SDV IV SCH (17:10)
[2019-09-28] MEDS: HYDROXYZINE PAMOATE 50 MG CAPSULE PO SCH (21:22)
--- NOTE | 2019-09-28 23:50 | Operative Report ---
Operative Report DATE OF SURGERY: 09/28/19 PREOPERATIVE DIAGNOSIS: History of section with T incision, Undesired Fertility, , 37+0ega, History of drug dependence on Suboxone, hep C pos POSTOPERATIVE DIAGNOSIS: LUIS ARMANDO - delivered OPERATION: Repeat section with scar revision and BTL with constantino SURGEON: TRUDY JORDAN ANESTHESIA: Spinal TISSUE REMOVED OR ALTERED: placenta and cord not sent to pathology COMPLICATIONS: none ESTIMATED BLOOD LOSS: 600ml INTRAOPERATIVE FINDINGS: Normal bilateral tubes/ovaries, aberrant uterine vessel overlying the right of prior uterine incision, VMI delivered at 1031 on 09/28/2019, Weight 3365g, Apgars 8/9. Filschie clips placed bilaterally on Fallopian tubes to complete tubal ligation PROCEDURE: Anesthesia provider: [Christofer BUTLER, [employer]] Urine output: [100ml] IV fluids: [1000ml] Indications: [29yo with history of two FTSVD then underwent section for twins at 35wks that required a T incision on her uterus. Due to prior t insion of uterus it is recommended for her to have repeat section at 37wks. She has known Hepatitis C and is on suboxone. She is 100% sure that she has completed childbearing and desires to have a Bilateral Tubal sterilization. The risks, benefits, alternatives were reviewed and she desires to proceed with planned procedure. ] Procedure: The patient was taken to the operating room where spinal anesthesia was obtained and found to be adequate. She was then prepped and draped in the normal sterile fashion and placed in the dorsal supine position with a leftward tilt. A Pfannenstiel skin incision was then made and carried through to the underlying layers of the fascia with the scalpel and the old hypertrophic scar was excised. The fascia was incised in the midline and the incision extended laterally with the Hunter scissors. The superior aspect of the fascial incision was then grasped with Chandni clamps elevated and the underlying rectus muscles dissected off [sharply]. Attention was then turned to the inferior aspect of the fascial incision which in a similar fashion was grasped, tented up with Chandni clamps, and the rectus muscles dissected off [bluntly]. The rectus muscles were then in the midline and the peritoneum at the amount taran ntified and entered [sharply]. The peritoneal incision was then extended superiorly and inferiorly with good visualization of the bladder. The bladder blade was inserted and the vesicouterine peritoneum identified grasped with [place] pickups and entered sharply with the Metzenbaum scissors. This incision was then extended laterally with the Metzenbaum scissors and a bladder flap created digitally. The bladder blade was then reinserted and the lower uterine segment incised in a transverse fashion with the scalpel. The uterine incision was then extended sharply to the left to avoid the aberrent uterine artery/vessel on the right. The bladder blade was removed and the infant's head was delivered from cephalic presentation atraumatically. The nose and mouth were suctioned and the cord doubly clamped and cut. And the was handed off to waiting pediatricians. The placenta was then delivered spontaneously and the uterus exteriorized and cleared of all clots and debris. The uterine incision was then repaired with 1- 0 Vicryl in a running locked fashion. A second layer of the same suture was used to obtain hemostasis via imbrication of the initial layer. The bladder flap was then repaired with 3-0 chromic in a running fashion. The left fallopian was identified and followed out to the fimbriated end and filschie clip was placed in the mid ampullary portion of the fallopian tube and this procedure was repeated on the patients right and this completed the bilateral tubal ligation. The uterus was returned to the patient's abdomen and Surgicel was placed overlying the uterine incision to help with hemostasis. The gutters were cleared of all clots and debris. All operative sites were noted to be hemostatic. The fascia was reapproximated with 0 Vicryl in a running fashion from each lateral edge to the midline. The skin was closed with 3-0 Monocryl in a running subcuticular fashion with overlying Dermabond for additional dressing as well as wound closure. The patient tolerated the procedure well. Sponge lap needle and instrument counts are correct times 2. 2 g of Ancef were given prior to skin incision. The patient was taken to the recovery area awake and in stable condition.
--- NOTE | 2019-09-28 23:52 | PDOC DELIVERY SUMMARY ---
Delivery Summary - Maternal Hx : V Hx # Term Pregnancies: 2 Hx # Pregnancies: 1 Hx Total # of Abortions (Sponateous & Elective): 1 Number of Living Children: 4 DIONISIO: 09/28/19 Gestational Age: 37 weeks Risk Factors: Previous , Other - T incision on prior section for twins at 35wks Ruptured Membranes: AROM Time of Rupture: 10:29 Fluids: Clear - Delivery Labor: Not In Labor Presentation: Vertex Heart Rate Monitoring: Done Pre-Operatively Uterine Contraction Monitoring: External Support Person Present: Yes Location: OR : Scheduled Placenta: Within Normal Limits Placenta Description: normal Number of Vessels (Cord): 3 Nuchal Cord: Yes Delivery of Placenta Date: 09/28/19 Delivery of Placenta Time: 10:32 Estimated Blood Loss: 600 Delivery Quantitative Blood Loss (QBL): 500 - Medications Type of Anesthesia:: Spinal - Assess and Care Baby 1 Male Delivery of Infant Date: 09/28/19 Delivery of Infant Time: 10:31 at 1 minute: 8 at 5 minutes: 9 Preprinted Number On Band: [id number] Infant Skin to Skin: No To Nursery At: 10:40 Mode of Transport: Bassinet Delivery Weight: 3,365 Infant Delivery Length: 19 in - Delivery Personnel Nursery RN: PROSPER WHITMORE MD: TRUDY JORDAN
[2019-09-29] MEDS: KETOROLAC TROMETHAMINE INJ/PF 30 MG/1 ML SDV IV SCH ×2 (01:14→10:46)
[2019-09-29 06:54] LABS: HEMATOCRIT 33.2 % (36.0-47.0); HEMOGLOBIN 11.3 g/dL (12.0-15.5); MEAN CORPUSCULAR HEMOGLOBIN 28.5 pg (27.0-33.4); MEAN CORPUSCULAR VOLUME 84 fl (80-97); PLATELET COUNT 258 10^3/uL (150-450); RED BLOOD COUNT 3.97 10^6/uL (3.72-5.28); RED CELL DISTRIBUTION WIDTH 15.4 % (11.5-14.0)
[2019-09-29] MEDS: OXYCODONE-ACETAMINOPHEN 5-325 MG TABLET PO PRN ×4 (07:39→21:12)
[2019-09-29] MEDS: PRENATAL VITAMIN W DHA CAPSULE PO SCH (10:47)
[2019-09-29] MEDS: DOCUSATE SODIUM 100 MG CAPSULE PO SCH ×2 (10:47→19:02)
[2019-09-29] MEDS: IBUPROFEN 800 MG TABLET PO SCH ×2 (11:55→19:02)
--- NOTE | 2019-09-29 13:56 | PDOC PROGRESS REPORT ---
Subjective Progress Note for:: 09/29/19 Subjective:: She reports that she is doing well today. Reason For Visit: O34.219 MATERNAL CARE FOR UNSP TYPE SCAR FROM PREV Physical Exam - Physical Exam Vital Signs: Temp Pulse Resp BP Pulse Ox 98.4 F 65 16 130/68 H 100 09/29/19 11:41 09/29/19 11:41 09/29/19 11:41 09/29/19 11:41 09/29/19 11:41 Intake & Output 09/28/19 09/29/19 09/30/19 06:59 06:59 06:59 Intake Total 1240 800 Output Total 2200 Balance -960 800 Weight 83.01 kg 183 kg General appearance: PRESENT: no acute distress, well-developed, well-nourished GI/Abdominal exam: PRESENT: normal bowel sounds, soft, other - Incision is clean dry and intact. ABSENT: distended, guarding, mass, organolmegaly, rebound, tenderness Extremities exam: PRESENT: full ROM. ABSENT: calf tenderness, clubbing, pedal edema Result Laboratory Results: 09/29/19 06:19 09/29/19 06:19 WBC 18.0 H RBC 3.97 Hgb 11.3 L Hct 33.2 L MCV 84 MCH 28.5 MCHC 34.0 RDW 15.4 H Plt Count 258 Impressions: Postop day 1 doing well Assessment & Plan - Diagnosis (1) Delivery by section using T-shaped incision Is this a current diagnosis for this admission?: Yes - Time Time Spent with patient: 15-24 minutes Anticipated discharge: Home Within: within 48 hours - Plan Summary Plan Summary: Continue care likely home tomorrow.
[2019-09-29] MEDS ORDERED: IBUPROFEN 800 MG TABLET PO SCH (15:00)
[2019-09-29] MEDS: HYDROXYZINE PAMOATE 50 MG CAPSULE PO SCH (21:13)
[2019-09-30] MEDS: IBUPROFEN 800 MG TABLET PO SCH ×3 (01:33→12:09)
[2019-09-30] MEDS: OXYCODONE-ACETAMINOPHEN 5-325 MG TABLET PO PRN (08:35)
[2019-09-30] MEDS: DOCUSATE SODIUM 100 MG CAPSULE PO SCH (09:52)
[2019-09-30] MEDS: PRENATAL VITAMIN W DHA CAPSULE PO SCH (09:53)
--- NOTE | 2019-09-30 10:26 | PDOC DISCHARGE SUMMARY ---
Impression - Admit/DC Date/PCP Admission Date/Primary Care Provider: 09/28/19 07:11 BRADEN OLIVEIRA MD Discharge Date: 09/30/19 - POD #2, pt to go home today, baby needs to stay in NBN due to mother's hx of taking Subutex. s/p w/ BTL. A+, Rubella Immune, bottlefeeding - Discharge Diagnosis (1) Delivery by section using T-shaped incision Is this a current diagnosis for this admission?: Yes (2) Hepatitis C Is this a current diagnosis for this admission?: Yes (3) Non-reassuring heart rate, delivered, current hospitalization Is this a current diagnosis for this admission?: Yes (4) complicated by subutex maintenance, antepartum Is this a current diagnosis for this admission?: Yes (5) SROM (spontaneous rupture of membranes) Is this a current diagnosis for this admission?: Yes - Additional Information Resuscitation Status: Full Code Discharge Diet: As Tolerated, Regular Discharge Activity: Activity As Tolerated, No Driving, No Lifting Over 10 Pounds, Pelvic Rest Referrals: BRADEN OLIVIERA MD [Primary Care Provider] - Prescriptions: Ibuprofen [Motrin 800 mg Tablet] 800 mg PO Q6 #60 tablet Oxycodone HCl/Acetaminophen [Percocet 5-325 mg Tablet] 1 tab PO Q4HP PRN 5 Days #30 tablet PRN Reason: Pain Scale Of 4 Home Medications: Buprenorphine HCl [Subutex 8 mg Sublingual Tablet] 1 tab PO BID 02/18/18 Ibuprofen [Motrin 800 mg Tablet] 800 mg PO Q6 #60 tablet 09/30/19 Oxycodone HCl/Acetaminophen [Percocet 5-325 mg Tablet] 1 tab PO Q4HP PRN 5 Days #30 tablet 09/30/19 HPI Reason(s) for Admission: Onset of Labor, Medical Complications, Obstetric Complications Procedures: NST, Ultrasound Intrapartum Procedure(s): : Low Cervical, Transverse, Tubal Ligation Hospital Course Hospital Course: routine PP course after the c/section Results Laboratory Results: WBC 18.0 10^3/uL (4.0-10.5) H 09/29/19 06:19 RBC 3.97 10^6/uL (3.72-5.28) 09/29/19 06:19 Hgb 11.3 g/dL (12.0-15.5) L 09/29/19 06:19 Hct 33.2 % (36.0-47.0) L 09/29/19 06:19 MCV 84 fl (80-97) 09/29/19 06:19 MCH 28.5 pg (27.0-33.4) 09/29/19 06:19 MCHC 34.0 g/dL (32.0-36.0) 09/29/19 06:19 RDW 15.4 % (11.5-14.0) H 09/29/19 06:19 Plt Count 258 10^3/uL (150-450) 09/29/19 06:19 Lymph % (Auto) 18.4 % (13-45) 09/27/19 10:52 [place] % (Auto) 6.7 % (3-13) 09/27/19 10:52 Eos % (Auto) 1.2 % (0-6) 09/27/19 10:52 Baso % (Auto) 0.5 % (0-2) 09/27/19 10:52 Absolute Neuts (auto) 9.8 10^3/uL (1.7-8.2) H 09/27/19 10:52 Absolute Lymphs (auto) 2.5 10^3/uL (0.5-4.7) 09/27/19 10:52 Absolute Monos (auto) 0.9 10^3/uL (0.1-1.4) 09/27/19 10:52 Absolute Eos (auto) 0.2 10^3/uL (0.0-0.6) 09/27/19 10:52 Absolute Basos (auto) 0.1 10^3/uL (0.0-0.2) 09/27/19 10:52 Seg Neutrophils % 73.2 % (42-78) 09/27/19 10:52 Urine Color YELLOW 09/27/19 10:52 Urine Appearance CLEAR 09/27/19 10:52 Urine pH 8.0 (5.0-9.0) 09/27/19 10:52 Ur Specific [place] 1.005 09/27/19 10:52 Urine Protein NEGATIVE mg/dL (NEGATIVE) 09/27/19 10:52 Urine Glucose (UA) NEGATIVE mg/dL (NEGATIVE) 09/27/19 10:52 Urine Ketones NEGATIVE mg/dL (NEGATIVE) 09/27/19 10:52 Urine Blood NEGATIVE (NEGATIVE) 09/27/19 10:52 Urine Nitrite NEGATIVE (NEGATIVE) 09/27/19 10:52 Urine Bilirubin NEGATIVE (NEGATIVE) 09/27/19 10:52 Urine Urobilinogen NEGATIVE mg/dL (<2.0) 09/27/19 10:52 Ur Leukocyte Esterase NEGATIVE (NEGATIVE) 09/27/19 10:52 Urine WBC (Auto) 0 /HPF 09/27/19 10:52 Urine RBC (Auto) 0 /HPF 09/27/19 10:52 Squamous Epi Cells Auto 1 /HPF 09/27/19 10:52 Urine Mucus (Auto) RARE /LPF 09/27/19 10:52 Urine Ascorbic Acid NEGATIVE (NEGATIVE) 09/27/19 10:52 Urine Opiates Screen NEGATIVE 09/27/19 10:52 Urine Methadone Screen NEGATIVE 09/27/19 10:52 Ur Barbiturates Screen NEGATIVE 09/27/19 10:52 Ur Phencyclidine Scrn NEGATIVE 09/27/19 10:52 Ur Amphetamines Screen NEGATIVE 09/27/19 10:52 U Benzodiazepines Scrn NEGATIVE 09/27/19 10:52 Urine Cocaine Screen NEGATIVE 09/27/19 10:52 U Marijuana (THC) Screen NEGATIVE 09/27/19 10:52 Chlamydia DNA (PCR) NOT DETECTED (NOT DETECT) 09/27/19 10:07 N.gonorrhoeae DNA (PCR) NOT DETECTED (NOT DETECT) 09/27/19 10:07 Blood Type A POSITIVE 09/27/19 10:52 Antibody Screen NEGATIVE 09/27/19 10:52 Plan Health Concerns: Hx Subutex use, s/p . Plan of Treatment: d/c home, f/up with [facility] in one week for incision check Time Spent: Less than 30 Minutes
[2019-09-30] MEDS ORDERED: INFLUENZA QUAD (6MOS+) 2019-20 VAC 0.5 ML SYR IM ONE ×2 (11:37→11:41)
[2019-09-30 12:06] VITALS: BP 134/67
== END 2019-09-30 14:00 | disposition home or self-care (01) | DRG 784 ==
LOC: 2S 07:11
PROVIDERS: ADMIT Student in an Organized Health Care Education/Training Program; ATTEND Student in an Organized Health Care Education/Training Program
PROC: 0UL70CZ Occlusion of Bilateral Fallopian Tubes with Extraluminal Device, Open Approach (ICD-10-PCS; 2019-09-28)
PROC: 10D00Z0 Extraction of Products of Conception, High, Open Approach (ICD-10-PCS; principal; 2019-09-28 10:00)
DX: O34.219 Maternal care for unspecified type scar from previous cesarean delivery (principal); O99.324 Drug use complicating childbirth; O98.42 Viral hepatitis complicating childbirth; N85.8 Other specified noninflammatory disorders of uterus; O99.334 Smoking (tobacco) complicating childbirth; O36.8330 Maternal care for abnormalities of the fetal heart rate or rhythm, third trimester, not applicable or unspecified; F17.210 Nicotine dependence, cigarettes, uncomplicated; F41.8 Other specified anxiety disorders; B19.20 Unspecified viral hepatitis C without hepatic coma; F11.90 Opioid use, unspecified, uncomplicated; Z3A.37 37 weeks gestation of pregnancy; Z37.0 Single live birth; Z30.2 Encounter for sterilization
CPT/HCPCS: 1961; 36415; 59025; 80307; 81001; 85025; 85027; 86850; 86900; 86901; 87491; 87591; 90686; 94799; J0131; J0690; J1170; J1200; J1885; J2250; J2370; J2405; J2590; J3010; J3490; J7060; J7120

== ENCOUNTER 2020-02-08 17:16 | Emergency (ER) | payer OTHER, MEDICAID ==
[2020-02-08 17:22] VITALS: BP 141/52
[2020-02-08] MEDS ORDERED: KETOROLAC TROMETHAMINE INJ/PF 30 MG/1 ML SDV IM ONE (18:05)
[2020-02-08] MEDS ORDERED: CYCLOBENZAPRINE HCL 10 MG TABLET PO ONE (18:05)
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
== END 2020-02-08 18:25 | disposition home or self-care (01) ==
LOC: ER 17:16
DX: M54.2 Cervicalgia (principal); M54.6 Pain in thoracic spine; F17.299 Nicotine dependence, other tobacco product, with unspecified nicotine-induced disorders; V89.2XXA Person injured in unspecified motor-vehicle accident, traffic, initial encounter
CPT/HCPCS: 99406; 99283; 96372; J1885